=== PATIENT | female | born 1975 | race Two or more races ===

== ENCOUNTER → 2019-10-22 | Outpatient (CLI) | payer OTHER | END | disposition home or self-care (01) | LOC: PRENATAL 13:30 | DX: Z36.82 Encounter for antenatal screening for nuchal translucency (principal); O36.80X1 Pregnancy with inconclusive fetal viability, fetus 1; O09.511 Supervision of elderly primigravida, first trimester ==

== ENCOUNTER → 2019-12-12 | Outpatient (CLI) | payer OTHER | END | disposition home or self-care (01) | LOC: PRENATAL 10:00 | DX: O35.3XX1 Maternal care for (suspected) damage to fetus from viral disease in mother, fetus 1 (principal); O09.512 Supervision of elderly primigravida, second trimester; O28.1 Abnormal biochemical finding on antenatal screening of mother; Z34.02 Encounter for supervision of normal first pregnancy, second trimester; Z36.89 Encounter for other specified antenatal screening ==